=== PATIENT | female | born 1950 ===

== ENCOUNTER → 2019-12-24 | Outpatient (CLI) | payer MEDICARE | END | disposition home or self-care (01) | LOC: CFH 09:58 | PROVIDERS: ATTEND Family Medicine | DX: Z12.31 Encounter for screening mammogram for malignant neoplasm of breast (principal); M81.0 Age-related osteoporosis without current pathological fracture; E04.1 Nontoxic single thyroid nodule; M85.88 Other specified disorders of bone density and structure, other site | CPT/HCPCS: 76536; 77063; 77067; 77080 ==